=== PATIENT | female | born 1950 | race Caucasian/White ===

== ENCOUNTER → 2016-08-01 | Outpatient (CLI) | payer MEDICARE, BC ==
[~2016-08-01] MED LIST: ASPI81TA2 PO; ATOR40TA59 PO; CALC-104 PO; CHOL20004 PO; DARI7.5T3 PO; DILT120C97 PO; LISI1TAB7 PO; MULT-212 PO; UBID200C4 PO
--- NOTE | 2016-08-01 15:40 | KCIC ---
Indication: Shortness of air. Time of exam 3:20 PM Comparison is made with prior chest from 08/27/2015. FINDINGS: The heart size is normal. The lungs are clear. No pleural effusion or pneumothorax is identified. The pulmonary vascularity is normal. IMPRESSION: No acute abnormality detected. Electronically signed by: Dariel Olmedo MD (08/01/2016 3:36 PM)
--- NOTE | 2016-08-01 15:41 | KCIC ---
Indication: Chronic right arm pain. Time of exam 3:22 PM 2 views of the right humerus were obtained. Alignment at the shoulder and elbow appears normal. The humerus appears intact. No fractures are seen. The soft tissues are unremarkable. IMPRESSION: No acute abnormality is detected. Electronically signed by: Dariel Olmedo MD (08/01/2016 3:37 PM)
== END | disposition home or self-care (01) ==
LOC: KCIC 15:03
PROVIDERS: ATTEND Family Medicine
DX: M79.601 Pain in right arm (principal); G89.29 Other chronic pain; R06.02 Shortness of breath
CPT/HCPCS: 71020; 73060

== ENCOUNTER → 2019-03-28 | Outpatient (CLI) | payer MEDICARE ==
[~2019-03-28] MED LIST changes: +ASPI-630 PO; -ASPI81TA2 PO; -CHOL20004 PO; +CHOL200074 PO; -DILT120C97 PO; +DILT120C99 PO; +LISI1TAB20 PO; -LISI1TAB7 PO; -UBID200C4 PO; +UBID200C7 PO
--- NOTE | 2019-04-04 17:14 | KCIC ---
Bilateral digital screening mammograms: Reason for examination: Routine screening. Comparison is made to previous study dated 02/04/2013. Interpretation was made with the benefit of CAD. The skin and nipples show no abnormalities. No abnormal axillary lymph nodes are seen. The breast parenchyma shows scattered fibroglandular density. (Breast density: Category B.) There are no dominant masses, suspicious calcifications or architectural distortions. Some benign calcifications are present. Impression: No evidence of malignancy. Recommend routine screening. BI-RADS category 2: Benign "Our facility is accredited by the [employer] Mammography [employer]." This patient's information has been entered into a reminder system for the patient to be notified with the results of her examination and a target date for the next mammogram. Electronically signed by: Danitza Cuellar MD (04/04/2019 5:11 PM) [id number]
== END | disposition home or self-care (01) ==
LOC: KCIC MAMMO 11:25
PROVIDERS: ATTEND Family Medicine
DX: Z12.31 Encounter for screening mammogram for malignant neoplasm of breast (principal); N64.89 Other specified disorders of breast
CPT/HCPCS: 77067

== ENCOUNTER → 2020-04-08 | Outpatient (CLI) | payer MEDICARE ==
--- NOTE | 2020-04-08 15:37 | KCIC ---
EXAM: Bilateral screening mammogram. HISTORY: 69-year-old female presents for screening mammography. TECHNIQUE: Full-field digital craniocaudal and mediolateral oblique views of both breasts are obtaine d for evaluation. Computer aided detection was applied. COMPARISON: 03/28/2019 BREAST PARENCHYMAL DENSITY: Level B - Scattered fibroglandular densities. FINDINGS: There is no new suspicious mass, microcalcification or region of architectural distortion. IMPRESSION: BI-RADS Category 2: Benign finding(s). RECOMMENDATION: Annual mammography is recommended. If your mammogram demonstrates that you have dense breast tissue, which could hide abnormalities, and if you have other risk factors for breast cancer that have been identified, you might benefit from s upplemental screening tests that may be suggested by your ordering physician. Dense breast tissue, i n and of itself, is a relatively common condition. This information is not provided to cause undue c oncern, but rather to raise your awareness and to promote discussion with your physician regarding th e presence of other risk factors, in addition to dense breast tissue. A report of your mammography re sults will be sent to you and your physician. You should contact your physician if you have any ques tions or concerns regarding this report. Mammography is a sensitive method for finding small breast cancers, but it does not detect them all a nd is not a substitute for careful clinical examination. A negative mammogram does not negate a clin ically suspicious finding and should not result in delay in biopsying a clinically suspicious abnorma lity. PQRS compliance statement - Patient information was entered into a reminder system with a target due date for the next mammogram. "Our facility is accredited by the [employer] Mammography [employer]." Electronically signed by: Prabha Whalen MD (04/08/2020 3:35 PM) [email or web address]
== END ==
LOC: KCIC MAMMO 10:47
PROVIDERS: ATTEND Family Medicine
DX: Z12.31 Encounter for screening mammogram for malignant neoplasm of breast (principal)
CPT/HCPCS: 77067

== ENCOUNTER → 2020-10-15 | Outpatient (CLI) | payer MEDICARE ==
--- NOTE | 2020-10-15 16:19 | KCIC ---
EXAM: Lumbar spine, 5 views. HISTORY: Pain. COMPARISON: None. FINDINGS: 5 views of the lumbar spine are obtained. There is S-shaped lumbar scoliosis. There is grad e 1 anterolisthesis of L4 and L5, measuring abdomen. There is multilevel endplate remodeling with dis c space narrowing, predominantly at L1-L2 and L4-L5. There is multilevel facet arthropathy. There is a gastric lap band overlying the left abdomen. IMPRESSION: 1. Multilevel degenerative change, primarily at L1-L2 and L4-L5. 2. Lumbar scoliosis and multilevel listhesis, described above. Electronically signed by: Prabha Whalen MD (10/15/2020 4:17 PM) [id number]
== END ==
LOC: KCIC 15:45
PROVIDERS: ATTEND Family Medicine
DX: M47.26 Other spondylosis with radiculopathy, lumbar region (principal); M41.86 Other forms of scoliosis, lumbar region; M43.16 Spondylolisthesis, lumbar region; M48.8X6 Other specified spondylopathies, lumbar region; M48.061 Spinal stenosis, lumbar region without neurogenic claudication; Z98.84 Bariatric surgery status
CPT/HCPCS: 72110

== ENCOUNTER → 2020-10-25 | Outpatient (CLI) | payer MEDICARE ==
--- NOTE | 2020-10-26 09:31 | KCIC ---
MR LUMBAR SPINE WO [id number] Date: 10/25/2020 1:25 PM Indication: LUMBAR RADICULOPATHY. New onset of episiodes of severe back pain and electrical shocks i n BLE. Comparison: Radiograph 10/15/2020. Technique: Multi-planar multi-weighted magnetic resonance imaging of the lumbar spine was performed w ithout intravenous contrast using the standard lumbar spine protocol. FINDINGS: 8 mm anterolisthesis at L4-5. No acute fracture. Moderate to severe multilevel degenerative disc omer ccation and disc height loss. Degenerative endplate edema at T12-L1 and L4-5. Fatty degenerative endp late changes at L1-2 and L5-S1. The conus terminates at a normal level. No abnormal signal is seen within the visualized distal spina l cord. No clumping of intrathecal nerve roots. Sacral Tarlov cyst. No soft tissue abnormality in the visualized abdomen or pelvis. T12-L1: Disc bulge. Mild facet arthropathy. No significant spinal stenosis or neural foraminal narrow ing. L1-L2: Disc bulge. Mild facet arthropathy. No significant spinal stenosis. Mild bilateral neural fora charles narrowing. L2-L3: Disc bulge. Mild facet arthropathy. No significant spinal stenosis. Mild left neural foraminal narrowing. L3-L4: Disc bulge. Moderate facet arthropathy. Ligamentum flavum thickening. Mild spinal stenosis. No neural foraminal narrowing. L4-L5: Disc bulge. Severe facet arthropathy. Ligamentum flavum thickening. Moderate to severe spinal stenosis. Mild right and moderate to severe left neural foraminal narrowing. L5-S1: Disc bulge. Moderate right and severe left facet arthropathy. No significant spinal stenosis. Mild right neural foraminal narrowing. IMPRESSION: Moderate to severe spinal canal stenosis at L4-5. Degenerative changes at the remaining levels as det stacey above. Electronically signed by: Elliot Angulo MD (10/26/2020 9:29 AM) [facility]TON[facility]
== END ==
LOC: KCIC MRI 13:08
PROVIDERS: ATTEND Family Medicine
DX: M47.26 Other spondylosis with radiculopathy, lumbar region (principal); M48.061 Spinal stenosis, lumbar region without neurogenic claudication; G96.191 Perineural cyst
CPT/HCPCS: 72148

== ENCOUNTER → 2021-05-24 | Outpatient (CLI) | payer MEDICARE ==
[~2021-05-24] MED LIST changes: -LISI1TAB20 PO; +LISI1TAB39 PO
--- NOTE | 2021-05-24 10:52 | KCIC ---
Bilateral digital screening mammograms: Reason for examination: Routine screening. Comparison is made to previous studies dated back to 02/04/2013. Interpretation was made with the benefit of CAD. The skin and nipples show no abnormalities. No abnormal axillary lymph nodes are seen. The breast par enchyma shows scattered fibroglandular density. (Breast density: Category B.) There are no dominant m asses, suspicious calcifications or architectural distortions. There continues to be a small intramam roselyn lymph node at the 9:30 C position of the right breast which is stable. There continue to be eder gn calcifications present. Impression: No evidence of malignancy. Recommend routine screening. BI-RADS category 2: Benign "Our facility is accredited by the [employer] Mammography [employer]." This patient's information has been entered into a reminder system for the patient to be notified wit h the results of her examination and a target date for the next mammogram. Electronically signed by: Danitza Cuellar MD (05/24/2021 10:50 AM) [id number]
== END ==
LOC: KCIC MAMMO 09:37
PROVIDERS: ATTEND Family Medicine
DX: Z12.31 Encounter for screening mammogram for malignant neoplasm of breast (principal)
CPT/HCPCS: 77067